=== PATIENT | male | born 1990 | race Caucasian/White ===

== ENCOUNTER 2020-05-15 22:22 | Emergency (ER) | payer SELFPAY ==
[~2020-05-15] VITALS: Ht 160 cm; Wt 68.0 kg
[2020-05-15] MEDS ORDERED: TETANUS, DIPHTHERIA, PERTUSSIS VAC/PF 0.5ML (>7YR OLD) IM ONE (23:15)
[2020-05-15] MEDS ORDERED: LIDOCAINE HCL 1% 20ML VIAL (Pyxis) INJ INFIL ONE (23:30)
[2020-05-16] MEDS ORDERED: BACITRACIN ZINC OINT UDPKT TOP ONE (00:15)
[2020-05-16] MEDS ORDERED: SODIUM CHLORIDE 0.9% 1,000 ML IV ONE (00:45)
[2020-05-16] MEDS ORDERED: SODIUM CHLORIDE 0.9% 500 ML IV ONE (02:45)
[2020-05-16 04:28] VITALS: BP 109/68
== END 2020-05-16 04:35 | disposition home or self-care (01) ==
LOC: ER 22:22
DX: S01.21XA Laceration without foreign body of nose, initial encounter (principal); F10.129 Alcohol abuse with intoxication, unspecified; I49.9 Cardiac arrhythmia, unspecified; W10.9XXA Fall (on) (from) unspecified stairs and steps, initial encounter; Y93.89 Activity, other specified; Y92.89 Other specified places as the place of occurrence of the external cause; Y99.8 Other external cause status; Y90.9 Presence of alcohol in blood, level not specified
CPT/HCPCS: 12011; 70450; 70486; 90471; 90715; 93005; 99285; J3490; J7030; J7040; Z7610

== ENCOUNTER 2020-07-24 20:15 | Emergency (ER) | payer SELFPAY | END 2020-07-24 20:58 | disposition left against medical advice (07) | LOC: ER 20:15 | DX: Z53.21 Procedure and treatment not carried out due to patient leaving prior to being seen by health care provider (principal) ==